=== PATIENT | male | born 1960 | race Caucasian/White ===

== ENCOUNTER 2022-05-28 16:05 | Emergency (ER) | payer SELFPAY ==
[~2022-05-28] VITALS: Ht 175.3 cm; Wt 125.0 kg
[2022-05-28 16:14] VITALS: BP 139/82
[2022-05-28] MEDS ORDERED: VENTOLIN HFA108 MCG PO (16:25)
[2022-05-28] MEDS ORDERED: PREDNISONE50 MG PO (16:25)
[2022-05-28] MEDS ORDERED: ZPAK PO (16:25)
[2022-05-28 16:31] VITALS: BP 126/74
[2022-05-28 16:33] VITALS: BP 126/74
== END 2022-05-28 16:40 | disposition home or self-care (01) | DRG 153 ==
LOC: ED 16:05
DX: J06.9 Acute upper respiratory infection, unspecified (principal); I10 Essential (primary) hypertension